=== PATIENT | male | born 1975 | race Two or more races ===

== ENCOUNTER 2016-09-08 14:04 | Emergency (ER) | payer MEDICAID ==
[~2016-09-08] VITALS: Ht 167.6 cm; Wt 54.4 kg
--- NOTE | 2016-09-08 15:37 | Diagnostic Imaging Report ---
Indications: Altered level of consciousness Technique: Spiral acquisitions obtained through the brain. Angled axial and coronal 5 x 5 mm slices were reconstructed. Total dose length product 1449 mGycm. CTDI vol(s) 70 mGy. Dose reduction achieved using automated exposure control Comparison: None Findings: No acute hemorrhage or edema. No mass effect or midline shift. There is a calcification in the region of the anterior right lentiform nucleus. There is a smaller calcification in the right parasagittal frontal cortex. Normal size ventricles and extra-axial CSF spaces. Normal villa-white differentiation. Intact calvarium. Visualized orbits and sinuses are unremarkable. 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 The CT scanner at [facility] is accredited by the [employer] and the scans are performed using protocols designed to limit radiation exposure to as low as reasonably achievable to attain images of sufficient resolution adequate for diagnostic evaluation.
[2016-09-08 16:15] VITALS: BP 111/70
[2016-09-08 20:52] VITALS: BP 122/78
--- NOTE | 2016-09-08 21:33 | Emergency Room Report ---
History of Present Illness General Chief Complaint: Alcohol Intoxication Source: EMS Present Illness HPI The patient is a 41 old male brought in by ambulance for possible alcohol intoxication. He was found laying on the sidewalk by his car. He does not provide any information at the time. Paramedics note smelling alcohol at the scene Allergies: Coded Allergies: No Known Allergies (Unverified , 09/08/16) Patient History Past Medical History: see triage record Pertinent Family History: none Reviewed Nursing Documentation: PMH: Agreed, PSxH: Agreed Nursing Documentation-PMH Past Medical History Deferred: Pt Cognitively Impaired Review of Systems All Other Systems: limited Physical Exam Vital Signs Date Time Temp Pulse Resp B/P Pulse Ox O2 Delivery O2 Flow Rate FiO2 09/08/16 14:08 99.0 68 16 110/50 98 Room Air Sp02 EP Interpretation: reviewed, normal General Appearance: no apparent distress, GCS 15, non-toxic, lethargic Head: normocephalic, atraumatic Eyes: bilateral eye PERRL, bilateral eye normal inspection ENT: normal ENT inspection, normal pharynx, no angioedema Neck: full range of motion, supple, no bony tend, supple/symm/no masses Respiratory: chest non-tender, lungs clear, normal breath sounds, no wheezing, speaking full sentences Cardiovascular #1: regular rate, rhythm, no edema Gastrointestinal: normal bowel sounds, non tender, soft, other - surgical scar of lower abdomen Genitourinary: normal inspection, no CVA tenderness Musculoskeletal: normal inspection, back normal, normal range of motion, non- tender Skin: normal color, no rash, warm/dry, well hydrated Lymphatic: no adenopathy Medical Decision Making PA Attestation Dr. Rock is my supervising physician. Patient management was discussed with my supervising physician Diagnostic Impression: Primary Impression: Acute alcoholic intoxication Qualified Codes: F10.120 - Alcohol abuse with intoxication, uncomplicated ER Course The patient is a 41-year-old male presenting for alcohol intoxication DDx considered but not limited to: acute alcohol intoxication, hepatic encephalopathy, drug overdose, hypoglycemia, psychosis Physical examNo apparent distress. Patient is lethargic. Head is normocephalic atraumatic. No signs of trauma Neck: No midline tenderness. Soft and supple Pupils are equally round and reactive to light The patient is arousable by touch Lungs are clear to auscultation bilaterally. No abnormal tenderness. Abdomen is soft. Otherwise exam is unremarkable CT head is unremarkable. Blood alcohol is significantly elevated The patient is given time to rest in the emergency department. Upon reevaluation, patient admits to drinking a large cup of unknown liquor which his friends gave him. The patient is able to ambulate well and is asking to leave at this time. The patient is alert and oriented. The patient be discharged home and given ER precautions. Patient was given advice on alcohol addiction Laboratory Tests Test 09/08/16 14:40 Serum Alcohol 330 mg/dL Lab Results Impression blood alcohol significantly elevated CT/MRI/US Diagnostic Results CT/MRI/US Diagnostic Results : Imaging Test Ordered: CT head Impression unremarkable Last Vital Signs Date Time Temp Pulse Resp B/P Pulse Ox O2 Delivery O2 Flow Rate FiO2 09/08/16 16:15 97.9 94 16 111/70 96 Room Air Status: improved Disposition: HOME, SELF-CARE Condition: Improved Referrals: [facility],REFERRING (PCP) Patient Instructions: Alcohol Intoxication Additional Instructions: My findings were discussed with the patient. Patient was counseled to seek help for alcohol abuse. Patient is stable for discharge, is alert and oriented, and can ambulate without difficulty. Patient is asked to return to ED if he experiences chest pain, abdominal pain, dizziness, falls down, or for any reason. GRETCHEN HILTON September 08, 2016 21:33
== END 2016-09-08 20:52 | disposition home or self-care (01) ==
LOC: EDBD 14:04 → EMR 14:33
DX: F10.120 Alcohol abuse with intoxication, uncomplicated (principal)
CPT/HCPCS: 36415; 70450; 80329; 99284